=== PATIENT | male | born 2000 | race Native Hawaiian/Other Pacific Islander ===

== ENCOUNTER 2021-08-18 17:24 | Emergency (ER) | payer OTHER ==
[~2021-08-18] VITALS: Ht 177.8 cm; Wt 74.8 kg
[2021-08-18 20:05] VITALS: BP 112/70; TEMP 98.5
== END 2021-08-18 20:05 | disposition home or self-care (01) ==
LOC: ED 17:24
DX: M54.12 Radiculopathy, cervical region (principal)
CPT/HCPCS: 99283

== ENCOUNTER 2022-03-21 14:15 | Emergency (ER) | payer OTHER ==
[~2022-03-21] VITALS: Ht 177.8 cm; Wt 74.8 kg
[2022-03-21 14:25] VITALS: BP 101/71; TEMP 98.8
[2022-03-21 16:20] LABS: PLATELET COUNT 209 K/uL (142-355)
[2022-03-21 16:28] LABS: POTASSIUM 4.4 mmol/L (3.6-5.2)
== END 2022-03-21 18:02 | disposition home or self-care (01) ==
LOC: ED 14:15
PROVIDERS: Emergency Medicine
DX: F41.8 Other specified anxiety disorders (principal); F32.89 Other specified depressive episodes
CPT/HCPCS: 80053; 80307; 81002; 85027; 99283